=== PATIENT | male | born 1965 | race Caucasian/White ===

== ENCOUNTER 2023-09-08 08:21 | Outpatient (CLI) | payer MEDICAID | END 2023-09-08 23:59 | disposition home or self-care (01) | LOC: RAD 08:21 | PROVIDERS: ATTEND Nurse Practitioner Family | DX: S06.9XAA Unspecified intracranial injury with loss of consciousness status unknown, initial encounter (principal); R94.01 Abnormal electroencephalogram [EEG]; R56.9 Unspecified convulsions; R41.3 Other amnesia; X58.XXXA Exposure to other specified factors, initial encounter; Y93.89 Activity, other specified; Y92.89 Other specified places as the place of occurrence of the external cause; Y99.8 Other external cause status | CPT/HCPCS: 95819 ==

== ENCOUNTER 2023-10-03 09:18 | Day surgery (SDC) | payer MEDICAID ==
[2023-09-30 10:15] LABS: BASOPHILS # (AUTO) 0.1 X10'3 (0-0.2); BASOPHILS % (AUTO) 0.6 % (0-1); EOSINOPHILS # (AUTO) 0.1 X10'3 (0-0.9); EOSINOPHILS % (AUTO) 0.7 % (0-6); LYMPHOCYTES % (AUTO) 20.2 % (21-51); MEAN CORPUSCULAR HEMOGLOBIN 26.3 PG (27.0-31.0); MEAN CORPUSCULAR VOLUME 79.6 FL (78-98); MEAN PLATELET VOLUME 8.3 FL (7.4-10.4); MONOCYTES # (AUTO) 0.6 X10'3 (0-0.9); NEUTROPHILS # (AUTO) 7.4 X10'3 (1.8-7.7); NEUTROPHILS % (AUTO) 72.5 % (42-75); PRE OP HEMATOCRIT 38.8 % (42.0-52.0); PRE OP HEMOGLOBIN 12.8 g/dL (14.0-17.9); PRE OP PLATELET COUNT 181 X10'3 (140-440); PRE OP WHITE BLOOD COUNT 10.2 10'3 (4.8-10.8); RED BLOOD COUNT 4.88 X10'6 (4.70-6.10); RED CELL DISTRIBUTION WIDTH 20.1 % (11.5-14.5)
[2023-09-30 10:35] LABS: ALBUMIN 3.3 G/DL (3.4-5.0); ALKALINE PHOSPHATASE 88 IU/L (46-116); BLOOD UREA NITROGEN 10 MG/DL (7-18); BUN/CREATININE RATIO 12.8 (10.0-20.0); CALCIUM 8.8 MG/DL (8.5-10.1); CHLORIDE 105 MMOL/L (99-107); CREATININE 0.78 MG/DL (0.60-1.10); PRE OP ALT 39 U/L (30-65); PRE OP ANION GAP 9 (8-16); PRE OP AST 20 U/L (10-37); PRE OP BILIRUB, TOTAL 0.5 MG/DL (0.0-1.0); PRE OP GLUCOSE 149 MG/DL (70-104); PRE OP POTASSIUM 3.8 MMOL/L (3.4-5.1); PRE OP SODIUM 139 MMOL/L (135-145); TOTAL CARBON DIOXIDE 24.6 MMOL/L (24-32); TOTAL PROTEIN 6.6 G/DL (6.4-8.2); eGFR > 90 ML/MIN
[2023-09-30 11:38] LABS: ANISOCYTOSIS 3+; BURR CELLS 2+; MICROCYTOSIS 1+; PLATELET ESTIMATE NORMAL; SCHISTOCYTES FEW
[2023-10-02] MEDS: DOCUMENT DATE & TIME OF BETA-BLOCKER PO ONE (08:00)
[~2023-10-03] VITALS: Ht 180.3 cm; Wt 89.9 kg
[2023-10-03] VITALS (10 sets, daily range): BP systolic 103–130; BP diastolic 67–85; PULSE 60–62; RESP 12–15; TEMP 97.7; O2SAT 93–99
[2023-10-03] MEDS: cefazolin 2gm/D5W 100mL 100 ML IV ONE (05:30)
[~2023-10-03 09:18] MED LIST: ASPI81TA52 PO; ATOR40TA72 PO; CARV-49 PO; CARV6.2553 PO; FERR325T34 PO; FLUO20TA28 PO; LIDOcaine 2% (20mg/ml) 5ml vial ONE; LISI2.5T14 PO
[2023-10-03] MEDS: famotidine 20mg tablet PO ONE (10:19)
[2023-10-03] MEDS: ringers solution, lacted 1,000 ML IV SCH (10:19)
[2023-10-03] MEDS ORDERED: morphine 2 MG/ML inj. syringe IV PRN (11:00)
[2023-10-03] MEDS ORDERED: morphine 4 MG/ML inj SYRINge IV PRN (11:00)
[2023-10-03] MEDS ORDERED: proCHLORperazine 10 MG/2 ml inj IV PRN (11:00)
[2023-10-03] MEDS ORDERED: ringers solution, lacted 1,000 ML IV SCH (11:00)
[2023-10-03] MEDS ORDERED: ondansetron/PF 4mg/2ml inj IV PRN (11:00)
[2023-10-03] MEDS ORDERED: HYDROmorphone/PF 0.2 MG/ML SYRINGE IV PRN ×2 (11:00)
[2023-10-03] MEDS ORDERED: fentaNYL /PF 50mcg/ml 5ml ampule ONE (11:04)
[2023-10-03] MEDS ORDERED: midazolam 1 mg/ML 2ml injection ONE (11:04)
[2023-10-03] MEDS ORDERED: LIDOcaine 0.5% (5mg/ml) 50ml vial ONE (11:04)
[2023-10-03] MEDS: BUPIVAcaine/PF 2.5mg/ml (0.25%) 10ml vial ONE ×2 (11:23)
[2023-10-03] MEDS ORDERED: propofol inj 20 ML IV ONE ×2 (11:26)
[2023-10-03] MEDS: acetaminophen 1,000mg/100ml IV 100 ML IV ONE (12:09)
== END 2023-10-03 13:35 | disposition home or self-care (01) ==
LOC: PAS 09:18
PROVIDERS: ATTEND Orthopaedic Surgery Hand Surgery
DX: M18.11 Unilateral primary osteoarthritis of first carpometacarpal joint, right hand (principal); I10 Essential (primary) hypertension; I25.2 Old myocardial infarction; F41.9 Anxiety disorder, unspecified; F32.A Depression, unspecified; I20.9 Angina pectoris, unspecified; F17.210 Nicotine dependence, cigarettes, uncomplicated; Z79.82 Long term (current) use of aspirin; Z79.899 Other long term (current) drug therapy; Z98.84 Bariatric surgery status; Z95.0 Presence of cardiac pacemaker; Z98.890 Other specified postprocedural states; Z83.3 Family history of diabetes mellitus
CPT/HCPCS: 25310; 25447; 36415; 80053; 82948; 85025; 93005; J0131; J0690; J2250; J2704; J3010; J3490; J7030; J7120; Z7506; Z7512; 85008; A4215; A4618; A6449; A7000

== ENCOUNTER 2024-03-05 06:10 | Outpatient (CLI) | payer MEDICAID ==
[~2024-03-05 06:10] MED LIST changes: -LIDOcaine 2% (20mg/ml) 5ml vial ONE
[2024-03-05] MEDS ORDERED: GADOTERATE MEGLUMINE 7.5 MMOL/15 ML VIAL IV ONE (06:48)
[2024-03-05] MEDS ORDERED: LIDOcaine 1%/PF 5ML 10 MG/ML VIAL ONE (06:48)
[2024-03-05] MEDS ORDERED: LIDOcaine 1% 30ml preserv. free vial ONE (06:50)
[2024-03-05] MEDS ORDERED: iohexol 300 MG/1 ML 50ml polymer ONE (06:50)
== END 2024-03-05 23:59 | disposition home or self-care (01) ==
LOC: RAD 06:10
PROVIDERS: ATTEND Orthopaedic Surgery
DX: S43.431A Superior glenoid labrum lesion of right shoulder, initial encounter (principal); M75.121 Complete rotator cuff tear or rupture of right shoulder, not specified as traumatic; M19.011 Primary osteoarthritis, right shoulder; M25.411 Effusion, right shoulder; M25.511 Pain in right shoulder; I10 Essential (primary) hypertension; K21.9 Gastro-esophageal reflux disease without esophagitis; G43.909 Migraine, unspecified, not intractable, without status migrainosus; F41.9 Anxiety disorder, unspecified; F43.10 Post-traumatic stress disorder, unspecified; F32.A Depression, unspecified; G47.00 Insomnia, unspecified; Z87.891 Personal history of nicotine dependence; Z79.82 Long term (current) use of aspirin; Z79.899 Other long term (current) drug therapy; Z95.0 Presence of cardiac pacemaker; Z98.84 Bariatric surgery status; X58.XXXA Exposure to other specified factors, initial encounter; Y93.89 Activity, other specified; Y92.89 Other specified places as the place of occurrence of the external cause; Y99.8 Other external cause status
CPT/HCPCS: 23350; 73222; 77002; A9575; J3490; Q9967; 73040